=== PATIENT | female | born 1995 | race Caucasian/White ===

== ENCOUNTER 2017-03-21 06:56 | Inpatient (IN) | payer OTHER, SELFPAY ==
[2017-03-21] MEDS ORDERED: LR 1,000 ML IV SCH ×3 (07:13→10:45)
[2017-03-21] MEDS ORDERED: AMPICILLIN SOD 2 GM in D5W MINI-BAG PLUS 100 ML IV STA (07:13)
[2017-03-21] MEDS ORDERED: LACTATED RINGER'S 1000 ML IV STA (07:13)
[2017-03-21 07:38] LABS: MEAN CORPUSCULAR HEMOGLOBIN 29.8 pg (27.0-33.0); MEAN CORPUSCULAR VOLUME 87.8 fl (80.0-96.0); RED CELL DISTRIBUTION WIDTH 12.9 % (11.5-14.5)
[2017-03-21 08:17] LABS: ALBUMIN 2.8 GM/DL (3.2-5.2); ALBUMIN/GLOBULIN RATIO 0.78 (1.00-1.93); ALKALINE PHOSPHATASE 170 U/L (45-117); ALT/SGPT 11 U/L (12-78); ANION GAP 11 MEQ/L (8-16); AST/SGOT 10 U/L (15-37); BILIRUBIN,TOTAL 0.2 MG/DL (0.2-1.0); BLOOD UREA NITROGEN 5 MG/DL (7-18); CALCIUM LEVEL 8.3 MG/DL (8.5-10.1); CARBON DIOXIDE LEVEL 20 MEQ/L (21-32); CHLORIDE LEVEL 110 MEQ/L (98-107); CREATININE FOR GFR 0.51 MG/DL (0.55-1.02); GLOMERULAR FILTRATION RATE > 60.0 (>60); GLUCOSE, FASTING 83 MG/DL (70-105); POTASSIUM SERUM 3.6 MEQ/L (3.5-5.1); SODIUM LEVEL 141 MEQ/L (136-145); TOTAL PROTEIN 6.4 GM/DL (6.4-8.2); URIC ACID 2.8 MG/DL (2.6-6.0)
--- NOTE | 2017-03-21 08:22 | HPEPDOC ---
Obstetrical History & Physical General Date of Admission March 21, 2017 at 07:07 History of Present Illness Judit is a 21yo with musa IUP at 38w1d who presents this morning with leakage of fluid per vagina since 0500, clear. Feels occasional ctx, good movement, no vaginal bleeding. 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 ABDOMEN: Gravid and non-tender to touch. FETUS: Is vertex (VTX) by sterile vaginal examination (SVE), grossly ruptured with forebag noted (nitrazine positive) HEART RATE: Regular rate and rhythm. LUNGS: Clear to auscultation (CTA). EXTREMITIES: trace edema of BLE Laboratory Data 24H LABS Laboratory Tests 2 03/21/17 07:11: Serology Scanned Report Hepatitis B Testing 03/21/17 07:20: CBC/BMP Laboratory Tests 03/21/17 07:20 Red Blood Count 3.88 L, Mean Corpuscular Volume 87.8, Mean Corpuscular Hemoglobin 29.8, Mean Corpuscular Hemoglobin Concent 34.0, Red Cell Distribution Width 12.9 Pertinent Laboratoy Data Blood Type: O+ RBC Antibody Screen: Negative HIV: Negative Hepatitis B: Negative Hepatitis C: Unknown Rapid Plasma Reagin: Nonreactive Rubella: Unknown Varicella: Nonreactive Chlamydia/Gonorrhea: Negative Group B Streptococcus: Positive Glucose Tolerance Test: 89 Anatomy Ultrasound Ultrasound Date: Nov 21, 2016 Placenta Location: Posterior Normal Anatomy: Yes Placenta Previa: No Steroid Therapy Steroid Therapy: No Vaginal Examination Dilation: 4 cm Effacement: 75% Station: -2 Cervical Consistency: Soft Cervical Position: Middle Presentation: Cephalic presentation Assessment Heart Rate (FHR): 140 Variability: Moderate Accelerations: Positive Decelerations: Other (One significant decel right on admission with pt sitting up, immediately recovered) Tocometer Contractions: Yes Frequency: regular, every 3-7 min. Strength: palpated as moderate Assessment/Plan Assessment Judit is a 21yo with musa IUP at 38w1d admitted to L&D for PROM/SROM , clear, 0500. SCE 480/-2. Grossly ruptured with nitrazine positive, but forebag felt on exam. Vitals notable for mild range bp's. Also, right after being placed on monitor in triage had significant FHR decel that immediately recovered, good variability and no recurrence. No s/sx of pre-E. GBS positive. Cephalic by SCE. Now meets criteria for dx of GHTN based on mild range bp in clinic yesterday and today PMhx: benign course: new dx GHTN Plan Admit and orient. Coat Maker and consent- discussed if recurrence of significant FHR decels, would be a reason for . Currently FHRT is very reassuring. Diet: clear liquids Group B Streptococcus (GBS) positive, no allergies: Amp 2/1 Labs and intravenous (IV) per unit protocol. With addition of CMP and uric acid for PIH w/u. Lactated Ringers (LR): Bolus 1000 mL, then at 125 mL/hr. Desires epidural when melanie more painfully, anesthesia consult written for Will keep eye to bp's, does not meet criteria for pre-eclampsia currently Dr. Conchita Mosqueda MD [place]heekCONCHITA Navarro MD March 21, 2017 08:22
[2017-03-21] MEDS ORDERED: TERBUTALINE SULFATE 1 MG/ML VIAL (J3105) As Ordered ONE (08:27)
[2017-03-21] MEDS ORDERED: TERBUTALINE SULFATE 1 MG/ML VIAL (J3105) SC ONE (08:27)
--- NOTE | 2017-03-21 08:51 | IPNPDOC ---
Text Note Date of Service The patient was seen on 03/21/17. NOTE Called to room for FHR deceleration Decel to 70's for 3 minutes with slow recovery up to 90's and then 140's after two more minutes Changed maternal positions: tried hands and knees with no improvement then far left lateral. FSE placed, SCE still 4/80/-2. Meconium noted. 1 dose SQ terbutaline given. Patient has on O2 and receiving initial 1L fluid bolus. Discussed with patient that this likely indicates a placental issue and fetus may not tolerate labor. Discussed plan of care with Dr. Orta who will be keeping a close eye to tracing. If any further recurrence of significant FHR decelerations, will be proceeding to . Patient aware of plan. Dr. Marianne Mosqueda MD [place]um[place] CALVILLO VS,John, I+O VS, John, I+O Laboratory Tests 03/21/17 07:20 Red Blood Count 3.88 L, Mean Corpuscular Volume 87.8, Mean Corpuscular Hemoglobin 29.8, Mean Corpuscular Hemoglobin Concent 34.0, Red Cell Distribution Width 12.9, Calcium Level 8.3 L, Aspartate Amino Transf (AST/SGOT) 10 L, Alanine Aminotransferase (ALT/SGPT) 11 L, Alkaline Phosphatase 170 H, Total Bilirubin 0.2, Uric Acid 2.8, Total Protein 6.4, Albumin 2.8 L MARIANNE MOSQUEDA MD March 21, 2017 08:51
[2017-03-21] MEDS ORDERED: ceFAZolin 2 GM/D5W 50 ML IV BAG (J0690) As Ordered ONE (09:01)
[2017-03-21] MEDS ORDERED: BICITRA 30ML SOLN UDC As Ordered ONE (09:01)
--- NOTE | 2017-03-21 09:10 | IPNPDOC ---
Text Note Date of Service The patient was seen on 03/21/17. NOTE SBAR an hour ago from Dr Mosqueda. Had another deceleration to 60-70's lasting 4- 6 min, and now another 3 min to 80's. This is the fourth significant decel since arrival. Mod variability inbetween. Accels also intermittently. Cx unchanged at 4 cm. status is reassuring overall currently however as is remote from delivery and not a candidate for pitocin and having recurrent random declerations I recommend Primary delivery. Informed consent obtained and anesthesia aware. Sessions John BENNETT, I+O VSJohn I+O Laboratory Tests 03/21/17 07:20 Red Blood Count 3.88 L, Mean Corpuscular Volume 87.8, Mean Corpuscular Hemoglobin 29.8, Mean Corpuscular Hemoglobin Concent 34.0, Red Cell Distribution Width 12.9, Calcium Level 8.3 L, Aspartate Amino Transf (AST/SGOT) 10 L, Alanine Aminotransferase (ALT/SGPT) 11 L, Alkaline Phosphatase 170 H, Total Bilirubin 0.2, Uric Acid 2.8, Total Protein 6.4, Albumin 2.8 L SESSIONS,ROXANE Mccabe MD March 21, 2017 09:10
[2017-03-21] MEDS ORDERED: MORPHINE PRES-FREE INJ 10 MG/10 ML VIAL (J2274) As Ordered ONE (09:13)
[2017-03-21] MEDS ORDERED: OXYTOCIN INJ 10 UNITS/ML VIAL (J2590) As Ordered ONE (09:14)
[2017-03-21] MEDS ORDERED: BICITRA 30ML SOLN UDC PO ONE (09:15)
[2017-03-21] MEDS ORDERED: PHENYLephrine HCL 500 MCG/5 ML (100MCG/ML) SYRINGE (J2370) As Ordered ONE (09:24)
[2017-03-21] MEDS ORDERED: ONDANSETRON 4MG/2ML VIAL (J2405) As Ordered ONE (09:40)
[2017-03-21] MEDS ORDERED: KETOROLAC 60 MG/2 ML VIAL (J1885) As Ordered ONE (09:40)
[2017-03-21] MEDS ORDERED: MEPERIDINE 50 MG/ML 1ML VIAL (J2175) As Ordered ONE (09:52)
[2017-03-21 10:01] LABS: CORD GAS ABE A -5.4; CORD GAS ABE V -4.8; CORD GAS HCO3 A 23.6 MEQ/L; CORD GAS HCO3 V 22.1 MEQ/L; CORD GAS O2 SAT A 21.6 %; CORD GAS O2 SAT V 46.9 %; CORD GAS PCO2 A 62.4 mmHg; CORD GAS PCO2 V 48.3 mmHg; CORD GAS PH A 7.196 UNITS; CORD GAS PH V 7.279 UNITS; CORD GAS PO2 A 13.6 mmHg; CORD GAS PO2 V 20.4 mmHg; CORD GAS SBC A 18.6 MEQ/L; CORD GAS SBC V 19.5 MEQ/L; CORD GAS TCO2 A 25.5 MEQ/L; CORD GAS TCO2 V 23.6 MEQ/L
[2017-03-21] MEDS ORDERED: PRENTAB55 PO (10:23)
[2017-03-21] MEDS ORDERED: OXYTOCIN DRIP 30 UNITS in APPROPRIATE DILUENT 1 EA IV SCH ×4 (10:33)
[2017-03-21] MEDS ORDERED: MEPERIDINE INJ 25 MG/ML VIAL (J2175) IV PRN (10:45)
[2017-03-21] MEDS ORDERED: diphenhydrAMINE INJ 50MG/ML VIAL (J1200) IV PRN (10:45)
[2017-03-21] MEDS ORDERED: ONDANSETRON 4MG/2ML VIAL (J2405) IV PRN (10:45)
[2017-03-21] MEDS ORDERED: RHOGAM 300 MCG (1500 IU) INJ (J2790) IM SCH (10:45)
[2017-03-21] MEDS ORDERED: METOCLOPRAMIDE INJ 10MG/2ML VIAL (J2765) IV PRN (10:45)
[2017-03-21] MEDS ORDERED: KETOROLAC 30 MG/ML VIAL (J1885) IV PRN (10:45)
[2017-03-21] MEDS ORDERED: PERCOCET 5MG/325MG TAB PO PRN (10:45)
[2017-03-21] MEDS ORDERED: fentaNYL 100 MCG/2 ML INJECTION (J3010) IV PRN (10:45)
[2017-03-21] MEDS ORDERED: MEASLES,MUMPS,RUBELLA VACCINE INJ (MMR-II) (90707) SC SCH (10:45)
[2017-03-21] MEDS ORDERED: AMPICILLIN SOD 1 GM in D5W MINI-BAG PLUS 50 ML IV SCH (11:00)
[2017-03-21 11:50] VITALS: BP 145/88
[2017-03-21] MEDS: PRENATAL VITAMIN TAB PO SCH (12:20)
[2017-03-21] MEDS: DOCUSATE SODIUM 100 MG CAP PO SCH ×2 (12:20→21:29)
[2017-03-21 13:30] VITALS: BP 144/90
[2017-03-21 14:25] VITALS: BP 157/82
[2017-03-21] MEDS: KETOROLAC 30 MG/ML VIAL (J1885) IV SCH ×2 (15:59→21:31)
[2017-03-21 18:02] VITALS: BP 170/76
[2017-03-21 18:11] VITALS: BP 135/73
[2017-03-21] MEDS ORDERED: DOCUSATE SODIUM 100 MG CAP PO SCH (21:00)
[2017-03-21 22:23] VITALS: BP 133/77
[2017-03-22 02:16] VITALS: BP 130/73
[2017-03-22] MEDS: KETOROLAC 30 MG/ML VIAL (J1885) IV SCH ×2 (03:56→10:16)
--- NOTE | 2017-03-22 06:04 | IPNPDOC ---
Text Note Date of Service The patient was seen on 03/22/17. NOTE POD1 prog note States feeling well, no complaints, itching resolved. No heavy VB. Pain controlled. Voiding, ambulatory, warner out a few hours ago. Bonding well and bottle feeding. Nexplanon for PPBC. VSSAF CTAB RRR Ut at [facility], [facility] CDI, bandage removed Ext no CCE a/p: Doing well, d/c likely tomorrow. routine postop care Sessions John BENNETT I+O John SOLANO I+O Laboratory Tests 03/21/17 07:20 Red Blood Count 3.88 L, Mean Corpuscular Volume 87.8, Mean Corpuscular Hemoglobin 29.8, Mean Corpuscular Hemoglobin Concent 34.0, Red Cell Distribution Width 12.9, Calcium Level 8.3 L, Aspartate Amino Transf (AST/SGOT) 10 L, Alanine Aminotransferase (ALT/SGPT) 11 L, Alkaline Phosphatase 170 H, Total Bilirubin 0.2, Uric Acid 2.8, Total Protein 6.4, Albumin 2.8 L Vital Signs Date Time Temp Pulse Resp B/P (MAP) Pulse Ox O2 Delivery O2 Flow Rate FiO2 03/22/17 02:16 99.0 86 16 130/73 (92) 100 Room Air I&O- Last 24 Hours up to 6 AM 03/22/17 06:00 Intake Total 3275 ml Output Total 4400 ml Balance -1125 ml ROXANE REYNOSO MD March 22, 2017 06:04
[2017-03-22 07:23] LABS: MEAN CORPUSCULAR HEMOGLOBIN 29.9 pg (27.0-33.0); MEAN CORPUSCULAR HGB CONC 33.3 g/dl (32.0-36.5); MEAN CORPUSCULAR VOLUME 89.7 fl (80.0-96.0); RED CELL DISTRIBUTION WIDTH 12.9 % (11.5-14.5); WHITE BLOOD COUNT 14.5 K/mm3 (4.0-10.0)
[2017-03-22] MEDS: DOCUSATE SODIUM 100 MG CAP PO SCH ×2 (07:49→20:31)
[2017-03-22] MEDS: PRENATAL VITAMIN TAB PO SCH (07:49)
[2017-03-22 10:00] VITALS: BP 128/72
[2017-03-22 14:00] VITALS: BP 126/69
[2017-03-22] MEDS: PERCOCET 5MG/325MG TAB PO PRN ×2 (14:12→20:29)
--- NOTE | 2017-03-22 15:20 | RO ---
DATE OF PROCEDURE: 03/21/2017 PREPROCEDURE DIAGNOSIS: Nonreassuring heart rate tracing, remote from delivery, meconium. POSTPROCEDURE DIAGNOSIS: Nonreassuring heart rate tracing, remote from delivery, meconium. SURGEON: Dr. Alejandro Orta MATERIAL CONTROL SUPERVISOR: ANESTHESIA: Spinal. ESTIMATED BLOOD LOSS: 500 mL. DRAINS: 650 mL of clear urine in the Dexter catheter after the procedure. REPLACEMENT: 1300 mL of lactated Ringers OPERATIVE PROCEDURE Primary section delivery via low transverse uterine incision. SPECIMENS: None. INDICATION: The patient was admitted approximately a few hours prior to me seeing her with a cervix of 4 cm and confirmed rupture of membranes. While in the triage area, she had a prolonged deceleration lasting 4 minutes. She then proceeded to have four more prolonged decelerations lasting anywhere from 3 to 6 minutes randomly with a healthy looking fetus with moderate variability and some accelerations. However, she did not change her cervix on her own from her admission examination to several hours later and due to the remote from delivery status and the persistently happening prolonged decelerations, I advised section delivery and the patient agreed. Informed consent was obtained. DESCRIPTION OF OPERATION: The patient was taken to the operating room with an IV in place and placed in the dorsal supine position in a leftward tilt after a spinal anesthetic was easily obtained. Dexter catheter was placed. Post spinal heart tones were normal. She was prepped and draped. A Pfannenstiel skin incision was carried down to the layer of the fascia, which was nicked in the midline and extended bilaterally to the skin incision. The fascia was tended up and the underlying rectus muscles were dissected off sharply without difficulty, both superiorly and inferiorly. The rectus muscles were in the midline. The peritoneal cavity was breeched with the surgeon's digit and a quick exploration revealed no scar tissue. A gentle stretching maneuver created an adequate peritoneal window. Bladder blade was placed. Bladder flap was created and a low transverse uterine incision was performed without difficulty, left to right. There was not meconium present at this time; however, prior noted meconium had been very thick. The 's head was easily delivered in flexed position and tunnel pressure helped to deliver the anterior and then posterior shoulders. The vigorous infant was noted to be very likely macrosomic, then had its cord clamped and cut and the was taken to the warmer for the awaiting manager radio team. Cord blood was obtained. Cord gases were obtained with arterial pH of 7.19 and a base excess of -5.4, the venous pH was 7.27 with a base excess of -4.9. Placenta was then removed under traction with fundal massage and Pitocin running wide open. The uterus was then delivered through the incision, placed on the abdomen, wrapped in a warm sponge and the uterus was cleared of all clot and debris times two with dry sponges. The incision was then closed from left to right with a running locked suture of #0 Vicryl. Imbrication was performed with #0 Monocryl from left to right without difficulty. Hemostasis was achieved. Irrigation and suction was performed behind the uterus. The uterus was placed at the abdomen and the gutters were cleared bilaterally. Hemostasis was again confirmed of the uterus. The rectus bellies were inspected to be hemostatic and the peritoneum was closed from superior to inferior with #3-0 Vicryl. The fascia was closed with a running suture of #0 Vicryl from left to right without difficulty. Subcutaneous tissue was copiously irrigated and made to be hemostatic. This potential space was closed with #2-0 Vicryl from left to right without difficulty. The skin incision was then closed with #4-0 Monocryl from right to left in a subcuticular fashion. Steri-Strips were placed and a pressure bandage was placed as well. The uterus was noted to be firm at U -2 and massaged bimanually with the vagina and cervix cleared of all clot and debris. The patient was taken to the postanesthesia care unit in stable condition with all counts being correct times three, including sponge, needle and instruments. NELL
[2017-03-22] MEDS: IBUPROFEN 800 MG TAB PO SCH (18:08)
[2017-03-22 18:30] VITALS: BP 122/70
[2017-03-23] MEDS: IBUPROFEN 800 MG TAB PO SCH ×2 (01:54→09:08)
[2017-03-23 06:00] VITALS: BP 129/76
[2017-03-23] MEDS: PRENATAL VITAMIN TAB PO SCH (09:07)
[2017-03-23] MEDS: DOCUSATE SODIUM 100 MG CAP PO SCH (09:08)
[2017-03-23] MEDS ORDERED: OXYC1TAB23 PO (11:00)
[2017-03-23] MEDS ORDERED: IBUP-1114 PO (11:00)
[2017-03-23] MEDS ORDERED: COLA100C3 PO (11:00)
--- NOTE | 2017-03-24 11:04 | DSES ---
DATE OF ADMISSION: 03/21/2017 DATE OF DISCHARGE: 03/23/2017 This lady is a 21-year-old 1 now para 1, had a primary section for non-reassuring heart tones at 38 and 1 after spontaneous rupture of membranes. Delivered a male , 8 pounds 12 ounces, 3954 grams, of 7 and 9 and one and five minutes respectively. Arterial pH 7.19, base excess -5.4, venous pH 7.27, base excess -4.8. Admitting hemoglobin was 11.6, hematocrit 34.1 and platelets are 221. Discharge hemoglobin 10.0, hematocrit 30.0, platelets are 195. This morning, we discussed phlebitis, cystitis, mastitis, endometritis, cellulitis, diet, exercise, pain management, perineal wound care. She has been dispensed medications to take at home. She was requesting Nexplanon at her 6-week checkup. Her blood pressure today is 129/76, respirations 18, pulse 68, temperature is 98.0. The rest of the examination is unremarkable. She is normocephalic, atraumatic. Neck: Full range of motion. Pupils equal and reactive to light. Chest is clear bilaterally to bases. No wheezes or rhonchi. Distal pulses symmetric. No evidence of DVT, PE or superficial phlebitis. Uterus is nontender. Four quadrant bowel sounds are noted. Incision clean and dry. Perineum is intact. She has no arthralgia, myalgia. No complaints of rash, lesion, pruritus. No cough, wheese, shortness of breath or dyspnea on exertion. No chest pain. Not bleeding. Neuro complete. No incontinency, urgency or frequency. No nausea, vomiting, diarrhea or constipation. She does not have any diabetic issues. The only indication she had during her was gestational hypertension. She has no contributing factors in gynecology, past medical history, past surgical history or family history. She does not smoke or drink or abuse drugs and there is no domestic violence. In summary, we have a term gestation primary section live male to be discharged. Followup in the office for incision check and two weeks' time and check in six weeks' time.
== END 2017-03-23 14:20 | disposition home or self-care (01) | DRG 766 ==
LOC: M LDO 06:56 → M LDI 07:07 → M OBS 11:40
PROVIDERS: ADMIT Obstetrics & Gynecology; ATTEND Obstetrics & Gynecology
PROC: 10D00Z1 Extraction of Products of Conception, Low, Open Approach (ICD-10-PCS; principal; 2017-03-21 09:33)
DX: O42.02 Full-term premature rupture of membranes, onset of labor within 24 hours of rupture (principal); O99.824 Streptococcus B carrier state complicating childbirth; O13.4 Gestational [pregnancy-induced] hypertension without significant proteinuria, complicating childbirth; Z3A.38 38 weeks gestation of pregnancy; O76 Abnormality in fetal heart rate and rhythm complicating labor and delivery; O36.63X0 Maternal care for excessive fetal growth, third trimester, not applicable or unspecified; O77.0 Labor and delivery complicated by meconium in amniotic fluid; Z37.0 Single live birth

== ENCOUNTER 2017-04-01 21:23 | Emergency (ER) | payer OTHER ==
[~2017-04-01] VITALS: Ht 170.2 cm; Wt 79.4 kg
[~2017-04-01 21:23] MED LIST: COLA100C3 PO; IBUP-1114 PO; OXYC1TAB23 PO; PRENTAB55 PO
[2017-04-02] MEDS ORDERED: ACETAMINOPHEN TAB 650MG DOSE (2X325MG) PO ONE (02:00)
[2017-04-02] MEDS ORDERED: NS 1,000 ML IV ONE (02:15)
[2017-04-02] MEDS ORDERED: KETOROLAC 30 MG/ML VIAL (J1885) IV ONE (02:15)
[2017-04-02] MEDS ORDERED: IPRATROPIUM 0.5MG/ALBUTEROL 2.5MG INH SOL UD 3ML (DUONEB)(J7620) NEB ONE (02:15)
[2017-04-02 02:41] LABS: BASO % 0.2 % (0.0-1.0); EOS # 0.1 K/mm3 (0.0-0.50); EOS % 0.6 % (0.0-3.0); LARGE UNSTAINED CELL # 0.1 K/mm3 (0.0-0.4); LARGE UNSTAINED CELL % 0.5 % (0.0-4.0); LYMPH # 1.6 K/mm3 (1.5-6.5); LYMPH % 6.6 % (24.0-44.0); MEAN CORPUSCULAR HEMOGLOBIN 28.1 pg (27.0-33.0); MEAN CORPUSCULAR HGB CONC 32.4 g/dl (32.0-36.5); MEAN CORPUSCULAR VOLUME 86.6 fl (80.0-96.0); MONO # 0.4 K/mm3 (0.0-0.8); MONO % 1.8 % (0.0-5.0); NEUTROPHILS # 20.8 K/mm3 (1.8-7.7); NEUTROPHILS % 90.3 % (36.0-66.0); PLATELET COUNT, AUTOMATED 362 k/mm3 (150-450); RED CELL DISTRIBUTION WIDTH 12.4 % (11.5-14.5)
[2017-04-02 02:47] LABS: VENOUS BASE EXCESS -0.3 (-2.0-2.0); VENOUS O2 SATURATION 89.3 % (60.0-80.0); VENOUS PARTIAL PRESSURE CO2 34.8 mmHg (38.0-50.0); VENOUS PARTIAL PRESSURE O2 54.8 mmHg (30.0-50.0); VENOUS STANDARD HCO3 24.1 MEQ/L; VENOUS TOTAL CO2 24.4 MEQ/L (24.0-28.0)
[2017-04-02 03:00] LABS: ANION GAP 10 MEQ/L (8-16); BLOOD UREA NITROGEN 11 MG/DL (7-18); CALCIUM LEVEL 8.6 MG/DL (8.5-10.1); CARBON DIOXIDE LEVEL 26 MEQ/L (21-32); CHLORIDE LEVEL 102 MEQ/L (98-107); CREATININE FOR GFR 0.63 MG/DL (0.55-1.02); GLOMERULAR FILTRATION RATE > 60.0 (>60); GLUCOSE, FASTING 114 MG/DL (70-105); POTASSIUM SERUM 3.7 MEQ/L (3.5-5.1); SODIUM LEVEL 138 MEQ/L (136-145)
[2017-04-02] MEDS ORDERED: ISOVUE-370 76% 100ML VIAL (Q9967) As Ordered ONE (03:18)
--- NOTE | 2017-04-02 03:50 | REPUSA ---
CLINICAL HISTORY: Dyspnea, exclude PE. TECHNIQUE: Multiple incremental axial, coronal and oblique images are obtained from the thoracic inle t to the upper abdomen. Intravenous contrast material was administered as per pulmonary embolism prot ocol. COMMENTS: There is excellent opacification of pulmonary arterial system without evidence for pulmonary embolism . Aorta is of normal caliber without evidence for dissection or aneurysm. There is no evidence of pleural or parenchymal mass. There are no pleural effusions. There is no evid ence of hilar or mediastinal lymphadenopathy. The heart and great vessels are within normal limits. Images of the upper abdomen demonstrate no evidence of adrenal mass. The bony structures are free of lytic or blastic lesions. IMPRESSION: No evidence for pulmonary embolism. Thank you for your kind referral of this patient.
[2017-04-02] MEDS ORDERED: AUGM875T27 PO (04:50)
[2017-04-02] MEDS ORDERED: AUGMENTIN 875 MG TAB PO ONE (05:00)
[2017-04-02 05:08] VITALS: BP 122/68
== END 2017-04-02 05:11 | disposition home or self-care (01) ==
LOC: M ED 22:44
DX: R50.9 Fever, unspecified (principal); Z79.899 Other long term (current) drug therapy
CPT/HCPCS: 36600; 71275; 80048; 82803; 85025; 87040; 93041; 94640; 96361; 96374; 99284; J1885; Q9967

== ENCOUNTER → 2017-11-25 | Outpatient (REF) | payer OTHER ==
[2017-11-25 17:46] LABS: HEMATOCRIT 37.5 % (36.0-47.0); HEMOGLOBIN 11.9 g/dl (12.0-16.0); MEAN CORPUSCULAR HEMOGLOBIN 28.9 pg (27.0-33.0); MEAN CORPUSCULAR HGB CONC 31.7 g/dl (32.0-36.5); PLATELET COUNT, AUTOMATED 311 10^3/uL (150-450); RED BLOOD COUNT 4.12 10^6/uL (4.00-5.40); RED CELL DISTRIBUTION WIDTH 12.8 % (11.5-14.5); WHITE BLOOD COUNT 3.4 10^3/uL (4.0-10.0)
== END ==
LOC: M SFHCLERA 11:07
DX: N93.9 Abnormal uterine and vaginal bleeding, unspecified (principal)

== ENCOUNTER 2018-02-09 22:22 | Emergency (ER) | payer OTHER ==
[2018-02-09 23:37] LABS: CONTROL LINE UCG INT CTR LINE PRESENT; URINE PREG TEST POSITIVE (NEGATIVE)
[2018-02-09 23:41] LABS: AMORPHOUS SEDIMENT SMALL (NEGATIVE); APPEARANCE, URINE HAZY (CLEAR); BACTERIA, URINE AUTO NEGATIVE (NEGATIVE); BILIRUBIN, URINE AUTO NEGATIVE (NEGATIVE); BLOOD, URINE BLOOD NEGATIVE (NEGATIVE); COLOR, URINE YELLOW (YELLOW); GLUCOSE, URINE (UA) AUTO NEGATIVE (NEGATIVE); KETONE, URINE AUTO NEGATIVE (NEGATIVE); LEUKOCYTE ESTERASE, URINE AUTO NEGATIVE (NEGATIVE); MUCUS, URINE SMALL (NEGATIVE); NITRITE, URINE AUTO NEGATIVE (NEGATIVE); PROTEIN, URINE AUTO NEGATIVE (NEGATIVE); RBC, URINE AUTO 1 /HPF (0-3); SPECIFIC GRAVITY URINE AUTO 1.024 (1.002-1.035); SQUAMOUS EPITHELIAL CELL UR AU 1 /HPF (0-6); WBC, URINE AUTO 3 /HPF (0-3)
[2018-02-10 00:35] LABS: BASO # 0.1 10^3/uL (0.0-0.2); EOS # 0.1 10^3/uL (0.0-0.50); EOS % 1.1 % (0.0-3.0); HEMATOCRIT 36.8 % (36.0-47.0); HEMOGLOBIN 12.1 g/dl (12.0-15.5); IMMATURE GRANULOCYTE % 0.3 % (0-3.0); LYMPH # 3.1 10^3/uL (1.5-6.5); LYMPH % 34.1 % (24.0-44.0); MEAN CORPUSCULAR HEMOGLOBIN 28.1 pg (27.0-33.0); MEAN CORPUSCULAR HGB CONC 32.9 g/dl (32.0-36.5); MEAN CORPUSCULAR VOLUME 85.4 fl (80.0-96.0); MONO # 0.6 10^3/uL (0.0-0.8); MONO % 6.4 % (0.0-5.0); NEUTROPHILS # 5.1 10^3/uL (1.8-7.7); NEUTROPHILS % 57.1 % (36.0-66.0); PLATELET COUNT, AUTOMATED 346 10^3/uL (150-450); RED BLOOD COUNT 4.31 10^6/uL (4.00-5.40); RED CELL DISTRIBUTION WIDTH 12.1 % (11.5-14.5); WHITE BLOOD COUNT 8.9 10^3/uL (4.0-10.0)
[2018-02-10 00:42] LABS: ANION GAP 7 MEQ/L (8-16); BLOOD UREA NITROGEN 8 MG/DL (7-18); CALCIUM LEVEL 9.1 MG/DL (8.5-10.1); CARBON DIOXIDE LEVEL 26 MEQ/L (21-32); CHLORIDE LEVEL 109 MEQ/L (98-107); CREATININE FOR GFR 0.64 MG/DL (0.55-1.30); GLOMERULAR FILTRATION RATE > 60.0 (>60); GLUCOSE, FASTING 88 MG/DL (70-100); HCG, SERUM QUANTITATIVE 515 MIU/ML; POTASSIUM SERUM 3.7 MEQ/L (3.5-5.1); SODIUM LEVEL 142 MEQ/L (136-145)
== END 2018-02-10 02:13 | disposition home or self-care (01) ==
LOC: M ED 22:22
DX: O20.9 Hemorrhage in early pregnancy, unspecified (principal); Z3A.01 Less than 8 weeks gestation of pregnancy
CPT/HCPCS: 76801

== ENCOUNTER 2018-04-29 10:02 | Emergency (ER) | payer OTHER ==
[2018-04-29 10:29] LABS: AMORPHOUS SEDIMENT RFX SMALL (NEGATIVE); KETONE, URINE AUTO RFX NEGATIVE (NEGATIVE); MUCUS, URINE RFX SMALL (NEGATIVE); NITRITE, URINE AUTO RFX NEGATIVE (NEGATIVE); RBC, URINE AUTO RFX 30 /HPF (0-3); SPECIFIC GRAVITY UR AUTO RFX 1.017 (1.002-1.035); SQUAM EPITHELIAL CELL UR AURFX 0 /HPF (0-6)
[2018-04-29 10:30] LABS: LEUKOCYTE ESTERASE UR AUTO RFX 3+ (NEGATIVE); WBC, URINE AUTO RFX TNTC /HPF (0-3)
[2018-04-29 11:02] LABS: BASO # 0.1 10^3/uL (0.0-0.2); BASO % 0.5 % (0.0-1.0); EOS # 0.1 10^3/uL (0.0-0.50); EOS % 0.6 % (0.0-3.0); HEMOGLOBIN 11.8 g/dl (12.0-15.5); IMMATURE GRANULOCYTE % 0.4 % (0-3.0); LYMPH # 1.4 10^3/uL (1.5-6.5); MEAN CORPUSCULAR HEMOGLOBIN 29.3 pg (27.0-33.0); MEAN CORPUSCULAR HGB CONC 33.7 g/dl (32.0-36.5); MEAN CORPUSCULAR VOLUME 86.8 fl (80.0-96.0); MONO # 0.5 10^3/uL (0.0-0.8); MONO % 4.5 % (0.0-5.0); NEUTROPHILS # 8.8 10^3/uL (1.8-7.7); PLATELET COUNT, AUTOMATED 260 10^3/uL (150-450); RED BLOOD COUNT 4.03 10^6/uL (4.00-5.40); RED CELL DISTRIBUTION WIDTH 12.5 % (11.5-14.5); WHITE BLOOD COUNT 10.9 10^3/uL (4.0-10.0)
[2018-04-29] MEDS: MORPHINE 2 MG/ML 1ML SYRINGE (J2270) IV (11:16)
[2018-04-29] MEDS: NS 1,000 ML IV (11:16)
[2018-04-29] MEDS: cefTRIAXone SOD 1 GM in D5W MINI-BAG PLUS 50 ML IV (11:16)
[2018-04-29 11:29] LABS: ANION GAP 10 MEQ/L (8-16); BLOOD UREA NITROGEN 5 MG/DL (7-18); CALCIUM LEVEL 8.4 MG/DL (8.5-10.1); CARBON DIOXIDE LEVEL 24 MEQ/L (21-32); CHLORIDE LEVEL 106 MEQ/L (98-107); CREATININE FOR GFR 0.51 MG/DL (0.55-1.30); GLOMERULAR FILTRATION RATE > 60.0 (>60); GLUCOSE, FASTING 109 MG/DL (70-100); POTASSIUM SERUM 3.6 MEQ/L (3.5-5.1); SODIUM LEVEL 140 MEQ/L (136-145)
== END 2018-04-29 12:11 | disposition home or self-care (01) ==
LOC: M ED 10:02
DX: O23.42 Unspecified infection of urinary tract in pregnancy, second trimester (principal); Z3A.16 16 weeks gestation of pregnancy
CPT/HCPCS: J0696